=== PATIENT | male | born 1965 | race Two or more races ===

== ENCOUNTER 2022-12-31 05:28 | Day surgery (SDC) | payer OTHER ==
[~2022-12-31] VITALS: Ht 167.6 cm; Wt 90.7 kg
[~2022-12-31 05:28] MED LIST: LOSARTAN POTASS25 MG PO
[2022-12-31] MEDS ORDERED: PERCOCET 5-3251 EACH PO (11:48)
== END 2022-12-31 15:45 | disposition home or self-care (01) ==
LOC: CIR.AMB 05:28
PROVIDERS: ATTEND Surgery
DX: N48.6 Induration penis plastica (principal); N52.8 Other male erectile dysfunction; N52.01 Erectile dysfunction due to arterial insufficiency; Z20.822 Contact with and (suspected) exposure to COVID-19; I10 Essential (primary) hypertension; R73.03 Prediabetes
CPT/HCPCS: 54405; 54112; 54360; C1813